=== PATIENT | female | born 1995 | race Caucasian/White ===

== ENCOUNTER 2023-02-20 18:13 | Emergency (ER) | payer SELFPAY ==
[2023-02-20 18:32] LABS: BASOPHILS ABSOLUTE AUTO 0.02 K/uL (0.00-0.20); BASOPHILS PERCENT AUTO 0.2 % (0.0-1.0); EOSINOPHILS ABSOLUTE AUTO 0.01 K/uL (0.00-0.45); EOSINOPHILS PERCENT AUTO 0.1 % (0.0-6.0); HEMATOCRIT 41.5 % (37.0-47.0); HEMOGLOBIN 14.1 g/dL (12.0-16.0); IMMATURE GRAN ABSOLUTE AUTO 0.02 K/uL (0.00-0.05); IMMATURE GRAN PERCENT AUTO 0.2 % (0.0-0.4); LYMPHOCYTES ABSOLUTE AUTO 1.72 K/uL (1.00-4.80); LYMPHOCYTES PERCENT AUTO 14.4 % (24.0-44.0); MEAN CORPUSCULAR VOLUME 82.5 fL (83.0-99.0); MONOCYTES ABSOLUTE AUTO 0.51 K/uL (0.00-0.80); MONOCYTES PERCENT AUTO 4.3 % (0.0-8.0); NEUTROPHILS ABSOLUTE AUTO 9.65 K/uL (1.80-7.70); NEUTROPHILS PERCENT AUTO 80.8 % (41.0-71.0); PLATELET COUNT,PLT 205 K/uL (150-400); RED BLOOD CELL COUNT 5.03 M/uL (4.10-5.30); WHITE BLOOD CELL COUNT,WBC 11.93 K/uL (3.9-11.3)
[2023-02-20 19:13] LABS: A/G RATIO 1.1 (0.9-1.6); ALBUMIN 4.1 g/dL (3.4-5.0); BILIRUBIN TOTAL 0.4 mg/dL (0.2-1.0); CALCIUM 9.4 mg/dL (8.5-10.1); CARBON DIOXIDE,CO2 28.2 mmol/L (21.0-32.0); CREATININE 0.7 mg/dL (0.6-1.0); EST CRCL DRUG DOSING (CG) 113.65 mL/min; POTASSIUM,K 3.8 mmol/L (3.5-5.1); PROTEIN TOTAL,TP 7.8 g/dL (6.4-8.2)
[2023-02-20 19:13] LABS: BILIRUBIN,URINE NEGATIVE (NEGATIVE); COLOR,URINE YELLOW; GLUCOSE,URINE NEGATIVE (NEGATIVE); KETONES,URINE 15 mg/dL (NEGATIVE); LEUKOCYTE ESTERASE,URINE NEGATIVE (NEGATIVE); NITRITE,URINE NEGATIVE (NEGATIVE); OCCULT BLOOD,URINE LARGE (NEGATIVE); PROTEIN,URINE NEGATIVE (NEGATIVE); UROBILINOGEN,URINE 0.2 EU/dL (<2.0)
[2023-02-20 19:14] LABS: APPEARANCE,URINE SLT CLOUDY
[2023-02-20 19:23] LABS: BACTERIA,URINE RARE (NEGATIVE); MUCUS,URINE LIGHT (NONE-MOD); RBC,URINE 80-100 (0-2/HPF); SQUAMOUS EPITHELIAL CELLS,UR FEW; WBC,URINE 0-2 (0-5/HPF)
[2023-02-20] MEDS ORDERED: Ibuprofen 600 MG Tab PO ONE (19:53)
== END 2023-02-20 21:24 | disposition home or self-care (01) ==
LOC: MW.ED 18:13
DX: O03.9 Complete or unspecified spontaneous abortion without complication (principal)
CPT/HCPCS: 36415; 76817; 80053; 81001; 84702; 85025; 86850; 86900; 86901; 90384; 96372; 99284; A9270; 99283; J2790

== ENCOUNTER 2023-12-20 03:54 | Inpatient (IN) | payer OTHER ==
[2023-12-20] MEDS ORDERED: Sodium Chloride 0.9% 20 ML SDV IV PRN (04:25)
[2023-12-20] MEDS ORDERED: Sodium Chloride 0.9% 2.5 ML Syringe FLUSH PRN (04:25)
[2023-12-20] MEDS ORDERED: Carboprost Tromethamine 250 MCG/1 mL Vial IM PRN (04:25)
[2023-12-20] MEDS ORDERED: Ondansetron 4 MG/2 ML SDV IVPUSH PRN (04:25)
[2023-12-20] MEDS ORDERED: Misoprostol 200 MCG Tab PO PRN (04:25)
[2023-12-20] MEDS ORDERED: Terbutaline 1 MG/ML SDV SUBCUT PRN (04:25)
[2023-12-20] MEDS ORDERED: Butorphanol 2 MG/ML SDV IVPUSH PRN (04:25)
[2023-12-20] MEDS ORDERED: Sodium Chloride 0.9% 10 ML Syringe FLUSH PRN (04:25)
[2023-12-20] MEDS ORDERED: Lidocaine 1% 50 ML MDV INJECT PRN (04:25)
[2023-12-20] MEDS ORDERED: Methylergonovine 0.2 MG/1 ML Amp IM PRN (04:25)
[2023-12-20 05:44] LABS: HEMATOCRIT 39.4 % (37.0-47.0); HEMOGLOBIN 13.4 g/dL (12.0-16.0); MEAN CORPUSCULAR HEMOGLOBIN 30.3 pg (28.0-32.0); MEAN CORPUSCULAR VOLUME 89.1 fL (83.0-99.0); MEAN PLATELET VOLUME 9.3 fL (9.4-12.3); PLATELET COUNT,PLT 189 K/uL (150-400); RED BLOOD CELL COUNT 4.42 M/uL (4.10-5.30); WHITE BLOOD CELL COUNT,WBC 10.13 K/uL (3.9-11.3)
[2023-12-20 05:46] LABS: APPEARANCE,URINE CLEAR; BILIRUBIN,URINE NEGATIVE (NEGATIVE); COLOR,URINE YELLOW; GLUCOSE,URINE NEGATIVE (NEGATIVE); KETONES,URINE TRACE mg/dL (NEGATIVE); LEUKOCYTE ESTERASE,URINE NEGATIVE (NEGATIVE); NITRITE,URINE NEGATIVE (NEGATIVE); OCCULT BLOOD,URINE NEGATIVE (NEGATIVE); PROTEIN,URINE NEGATIVE (NEGATIVE); UROBILINOGEN,URINE 0.2 EU/dL (<2.0)
[2023-12-20] MEDS: Lactated Ringers 1,000 ML IV SCH (05:55)
[2023-12-20] MEDS: Oxytocin/0.9 % Sodium Chloride 30 UNIT/500 ML BAG IV SCH ×2 (05:56→11:52)
[2023-12-20 06:38] LABS: A/G RATIO 0.9 (0.9-1.6); ALBUMIN 2.8 g/dL (3.4-5.0); BILIRUBIN TOTAL 0.4 mg/dL (0.2-1.0); CALCIUM 9.3 mg/dL (8.5-10.1); CREATININE 0.5 mg/dL (0.6-1.0); POTASSIUM,K 3.7 mmol/L (3.5-5.1)
[2023-12-20] MEDS ORDERED: Lanolin 100% Cream 7 GM Tube TOP PRN (11:50)
[2023-12-20] MEDS ORDERED: Benzocaine/Menthol 20%-0.5% Spray 78 GM Cannister TOP PRN (11:50)
[2023-12-20] MEDS ORDERED: oxyCODONE 5 MG Tab PO PRN (11:50)
[2023-12-20] MEDS ORDERED: Docusate Sodium 100 MG Cap PO PRN (11:50)
[2023-12-20] MEDS: Water For Irrigation,Sterile 1,000 ML Container IRR PRN (11:53)
[2023-12-20 12:27] LABS: PH,UMBILICAL ARTERIAL 7.278 (7.18-7.38); PH,UMBILICAL VENOUS 7.413 (7.25-7.45)
[2023-12-20] MEDS: Ibuprofen 800 MG Tab PO PRN (13:29)
[2023-12-20] MEDS: Witch Hazel Medicated Pads 40/Jar TOP PRN (13:30)
[2023-12-20] MEDS: Acetaminophen 500 MG Tab PO PRN (16:26)
[2023-12-21 05:56] LABS: HEMATOCRIT 38.8 % (37.0-47.0); HEMOGLOBIN 13.1 g/dL (12.0-16.0)
[2023-12-21 06:26] LABS: CALCIUM 8.5 mg/dL (8.5-10.1); CREATININE 0.6 mg/dL (0.6-1.0); EST CRCL DRUG DOSING (CG) 143.33 mL/min
== END 2023-12-22 12:00 | disposition still patient (30) | DRG 807 ==
LOC: OBSVTOIN 03:54 → MW.OB 03:54
PROVIDERS: ADMIT Obstetrics & Gynecology; ATTEND Obstetrics & Gynecology
PROC: 10E0XZZ Delivery of Products of Conception, External Approach (ICD-10-PCS; principal; 2023-12-20)
PROC: 10907ZC Drainage of Amniotic Fluid, Therapeutic from Products of Conception, Via Natural or Artificial Opening (ICD-10-PCS; 2023-12-20)
PROC: 3E033VJ Introduction of Other Hormone into Peripheral Vein, Percutaneous Approach (ICD-10-PCS; 2023-12-20)
PROC: 3E033VJ Introduction of Other Hormone into Peripheral Vein, Percutaneous Approach (ICD-10-PCS; 2023-12-20)
DX: O24.420 Gestational diabetes mellitus in childbirth, diet controlled (principal); Z37.0 Single live birth; O13.4 Gestational [pregnancy-induced] hypertension without significant proteinuria, complicating childbirth; Z3A.37 37 weeks gestation of pregnancy; Z98.890 Other specified postprocedural states
CPT/HCPCS: 36415; 59025; 59409; 80048; 80053; 81003; 82803; 82947; 84550; 85014; 85018; 85027; 85460; 86592; 86850; 86870; 86900; 86901; A9270-GY; J2590; J2791; J3490; J7120